=== PATIENT | female | born 1960 | race Caucasian/White ===

== ENCOUNTER 2017-09-07 17:08 | Emergency (ER) | payer OTHER ==
[~2017-09-07] VITALS: Ht 157.5 cm; Wt 74.8 kg
--- NOTE | ~2017-09-07 | EKG ---
[address] [address] ELECTROCARDIOGRAM REPORT Name: GERARD SORIANO [facility] [id number] Admission: 09/07/17 Attend Phys: Discharge: 09/07/17 Date of : 60 Report #: [id number] THIS REPORT FOR: //name// [facility] ED Test Date: 2017-09-07 Test Time: 17:14:04 Pat Name: GERARD SORIANO Department: Room: Gender: F Senior Process Engineer: YISEL : 1960 Requested By: Vicki Benjamin Order Number: [id number] MD: Severiano Cary Measurements Intervals [place] Rate: 69 P: 47 NC: 155 QRS: -6 QRSD: 103 T: 31 QT: 394 QTc: 422 Interpretive Statements Sinus rhythm No previous ECG available for comparison Electronically Signed On 09-08-2017 7:43:[address] DEPARTMENT DISPATCHER by Severiano Cary [email or web address] <ELECTRONICALLY SIGNED> By: Severiano Cary MD 09/08/17 0743 1714 1714 Severiano Cary MD /ARGELIA
--- NOTE | ~2017-09-07 | EKG ---
[place] [address] [facility] [place] [address] ELECTROCARDIOGRAM REPORT Name: GERARD SORIANO [id number] Admission: 09/07/17 Attend Phys: Discharge: 09/07/17 Date of : 60 Report #: [id number] THIS REPORT FOR: //name// [facility] ED Test Date: 2017-09-07 Test Time: 19:16:43 Pat Name: GERARD SORIANO Department: Room: Gender: F Composer Teaching Artist: Meme AGGARWAL : 1960 Requested By: Vicki Benjamin Order Number: [id number] MD: Gilberto Alfonso Measurements Intervals [place] Rate: 68 P: 43 CO: 156 QRS: -6 QRSD: 105 T: 27 QT: 418 QTc: 445 Interpretive Statements Sinus rhythm Baseline wander in lead(s) V6 No previous ECG available for comparison Electronically Signed On 09-08-2017 7:45:52 POT WASHER by Gilberto Alfonso [email or web address] <ELECTRONICALLY SIGNED> By: Gilberto Alfonso MD, [facility] 09/08/17 0745 1916 15 Gilberto Alfonso MD, FACC /EPI
[2017-09-07] MEDS ORDERED: VICODIN 5-3001 EACH PO (17:21)
[2017-09-07 17:44] LABS: ABSOLUTE NEUTROPHILS 3.7 thou/uL (1.4-8.2); BASOPHILS 0.6 % (0.0-2.0); EOSINOPHILS 4.8 % (0.0-3.0); HEMATOCRIT 39.5 % (37.0-47.0); HEMOGLOBIN 13.6 gm/dL (12.0-15.0); LYMPHOCYTES 43.2 % (24.0-44.0); MCH 30.4 pg (26.0-34.0); MCHC 34.4 g/dL (28.0-37.0); MCV 88.4 fL (80.0-100.0); MONOCYTES 5.5 % (1.0-8.0); PLATELET COUNT 265 thou/uL (150-400); POLYS 45.9 % (36.0-66.0); RBC 4.47 mil/uL (4.20-5.00); RDW 12.8 % (10.5-14.5); WBC 8.1 thou/uL (4.0-11.0)
[2017-09-07 17:50] LABS: ANION GAP 10 mmol/L (7-16); BUN 13 mg/dL (7-18); CALCIUM 9.4 mg/dL (8.5-10.1); CHLORIDE 104 mmol/L (98-107); CO2 28 mmol/L (21-32); CREATININE 0.6 mg/dL (0.6-1.0); GLUCOSE 90 mg/dL (74-106); POTASSIUM 3.9 mmol/L (3.5-5.1); SODIUM 142 mmol/L (136-145)
[2017-09-07 17:59] LABS: TROPONIN-I < 0.04 ng/mL (<0.06)
== END 2017-09-07 20:00 | disposition home or self-care (01) ==
LOC: ER 17:08
PROVIDERS: Emergency Medicine
DX: R07.9 Chest pain, unspecified (principal); R06.02 Shortness of breath